=== PATIENT | male | born 1945 | race Caucasian/White ===

== ENCOUNTER → 2016-09-19 | Outpatient (CLI) | payer OTHER ==
--- NOTE | 2016-09-19 13:56 | DX ---
Chest, Two Views - September 19, 2016 at 1132 hours History: Exertional dyspnea. Comparison: November 2015 Findings: Cardiac silhouette is within normal range. Moderate degenerative disk disease in the thorac ic spine. Hyperinflation of the lungs and flattening of the hemidiaphragms. No pneumonia, congestive heart failure, pleural effusion, or pneumothorax. Impression: 1. COPD. 2. No definite pneumonia or pulmonary edema. 3. Consider low-dose screening CT chest.
== END ==
LOC: CIMAGING 11:25
PROVIDERS: ATTEND Internal Medicine
DX: J44.9 Chronic obstructive pulmonary disease, unspecified (principal)
CPT/HCPCS: 71020-PO

== ENCOUNTER 2017-08-22 10:45 | Emergency (ER) | payer OTHER ==
--- NOTE | 2017-08-22 13:10 | EDPHY ---
H & P Time Seen by Provider: 08/22/17 10:51 HPI/ROS: 72-year-old male had an upper and lower endoscopy this morning at [facility] with Dr. Braden, he had a few polyps removed and biopsies-nothing invasive per Dr Braden. After the procedure he felt well, though tired from a long night of preparation for the procedure. He went to have a meal after the procedure and noticed a tablespoon of blood with his bowel movement , as well as some small clots. He denies feeling light headed or dizzy, no chest pain, no shortness of breath and no palpitations. He is normally on pradaxa for his afib but it was stopped for the procedure and he has been on Lovenox, he is to restart his pradaxa on of this week. Review of systems As per HPI General no fever no chills no weakness HEENT no eye pain no eye discharge. No eye redness, no sore throat Respiratory no cough, no shortness of breath Cardiac no chest pain, no peripheral edema GI no abdominal pain, no diarrhea, no constipation, no nausea, no vomiting, positive rectal bleeding no flank pain, no hematuria, no dysuria Musculoskeletal no myalgias, no joint pain Heme no easy bruising, no easy bleeding Endo no polyuria, no polydipsia Skin no rashes, no pruritus Neuro no syncope, no dizziness, no headaches Psych is no suicidal ideation, no homicidal ideation Past Medical/Surgical History: copd obesity diabetes gout Social History: Denies alcohol or drug use. Smoking Status: Former smoker Physical Exam: 72-year-old male alert and oriented in nad, non toxic appearance, afebrile VSS at, nc eomi neck supple, no jvd lungs cta bilat heart rrr abd obese nabs soft ext trace edema, venous stasis changes bilaterally rectal no external evidence of blood, no clots on exam blood tinged mucous Constitutional: Initial Vital Signs Temperature (C) 36.4 C 08/22/17 11:01 Heart Rate 86 08/22/17 11:01 Respiratory Rate 20 08/22/17 11:01 Blood Pressure 159/76 H 08/22/17 11:01 O2 Sat (%) 89 L 08/22/17 11:01 O2 Delivery Mode Room Air Allergies/Adverse Reactions: ciprofloxacin [From Cipro] Allergy (Verified 08/22/17 10:56) ciprofloxacin HCl [From Cipro] Allergy (Verified 08/22/17 10:56) metronidazole [From Flagyl] Allergy (Verified 08/22/17 10:56) Home Medications: Medication Instructions Recorded ASPIRIN 08/22/17 Advair 250/50 (*) 08/22/17 Allopurinol 08/22/17 Benicar 08/22/17 Centrum Adults Tablet 08/22/17 Coenzyme Q10 08/22/17 Colchicine 08/22/17 FLUTICASONE PROPIONATE 08/22/17 Furosemide 08/22/17 Humalog 08/22/17 LYRICA 08/22/17 Lantus Solostar 08/22/17 Lipitor 08/22/17 Metoprolol Oral Susp (*) 08/22/17 ONDANSETRON HCL 08/22/17 Pantoprazole Sodium 08/22/17 Pradaxa 08/22/17 Soolantra 08/22/17 Spiriva Inhaler (RX) 08/22/17 amLODIPine BESYLATE 08/22/17 metFORMIN SR 08/22/17 traZODone 08/22/17 Medical Decision Making ED Course/Re-evaluation: Pt seen and evaluated for rectal bleeding after colonoscopy. No abdominal pain. Labs Hgb 13.6 INR wnl Pt with small amount of blood on exam. Discussed with Dr Braden, he stated it is normal to have some bleeding , it should slow down over the next two days. He felt the procedure would not lead to any significant bleeding, some polyp removal and biopsies. Imp Post colonoscopy rectal bleeding Pt without sympotms, no hypotension, no tachycardia and with stable hemoglobin Plan Home Return if bleeding continues or worsens. Patient given option 1) baseline labs and observation in ER for 1-2 more hours 2) baseline labs and admit for 23 hour observation 3) baseline labs and home, with strict precautions to return if worsening He was adamant about going home . Differential Diagnosis: Differential diagnosis considered but not limited to: Coagulopathy Rectal bleeding-status post colonoscopy with polyp removal, polyps site could be bleeding Biopsy site could be bleeding - Data Points Laboratory Results: Laboratory Results 08/22/17 13:10 08/22/17 13:10 08/22/17 08/22/17 08/22/17 13:10 13:10 13:10 WBC 9.04 10^3/uL 10^3/uL (3.80-9.50) RBC 4.36 10^6/uL L 10^6/uL (4.40-6.38) Hgb 13.6 g/dL L g/dL (13.7-17.5) Hct 39.2 % L % (40.0-51.0) MCV 89.9 fL fL (81.5-99.8) MCH 31.2 pg pg (27.9-34.1) MCHC 34.7 g/dL g/dL (32.4-36.7) RDW 16.5 % H % (11.5-15.2) Plt Count 186 10^3/uL 10^3/uL (150-400) MPV 10.5 fL fL (8.7-11.7) Neut % (Auto) 74.1 % % (39.3-74.2) Lymph % (Auto) 16.0 % % (15.0-45.0) [place] % (Auto) 7.7 % % (4.5-13.0) Eos % (Auto) 1.7 % % (0.6-7.6) Baso % (Auto) 0.3 % % (0.3-1.7) Nucleat RBC Rel Count 0.0 % % (0.0-0.2) Absolute Neuts (auto) 6.69 10^3/uL H 10^3/uL (1.70-6.50) Absolute Lymphs (auto) 1.45 10^3/uL 10^3/uL (1.00-3.00) Absolute Monos (auto) 0.70 10^3/uL 10^3/uL (0.30-0.80) Absolute Eos (auto) 0.15 10^3/uL 10^3/uL (0.03-0.40) Absolute Basos (auto) 0.03 10^3/uL 10^3/uL (0.02-0.10) Absolute Nucleated RBC 0.00 10^3/uL 10^3/uL (0-0.01) Immature Gran % 0.2 % % (0.0-1.1) Immature Gran # 0.02 10^3/uL 10^3/uL (0.00-0.10) PT 14.0 SEC SEC (12.0-15.0) INR 1.09 (0.83-1.16) APTT 43.4 SEC H SEC (23.0-38.0) Sodium 141 mEq/L mEq/L (134-144) Potassium 3.9 mEq/L mEq/L (3.5-5.2) Chloride 106 mEq/L mEq/L (97-110) Carbon Dioxide 20 mEq/l L mEq/l (22-31) Anion Gap 15 mEq/L mEq/L (8-16) BUN 15 mg/dL mg/dL (7-23) Creatinine 0.9 mg/dL mg/dL (0.7-1.3) Estimated GFR > 60 Glucose 174 mg/dL H mg/dL (70-100) Calcium 9.1 mg/dL mg/dL (8.5-10.4) Departure - Departure Disposition: Home, Routine, Self-Care Clinical Impression: Rectal bleeding Condition: Good Instructions: Rectal Bleeding (ED) Additional Instructions: If you feel you have heavy bleeding, dizziness, chest pain or shortness of breath, please go to your closest ED. Referrals: Ivan Wahl MD [Primary Care Provider] - As per Instructions
[2017-08-22 13:15] LABS: PLATELET COUNT 186 10^3/uL (150-400)
[2017-08-22 13:22] VITALS: BP 152/79; PULSE 81; RESP 19; TEMP 97.9; O2SAT 91
[2017-08-22 13:27] LABS: INR 1.09 (0.83-1.16)
== END 2017-08-22 13:22 | disposition home or self-care (01) ==
LOC: CED 10:45
DX: K62.5 Hemorrhage of anus and rectum (principal); J44.9 Chronic obstructive pulmonary disease, unspecified; E11.9 Type 2 diabetes mellitus without complications; Z79.4 Long term (current) use of insulin; Z79.82 Long term (current) use of aspirin; Z79.84 Long term (current) use of oral hypoglycemic drugs; Z87.891 Personal history of nicotine dependence
CPT/HCPCS: 80048-PO; 85025-PO; 85610-PO; 85730-PO

== ENCOUNTER → 2017-08-29 | Outpatient (CLI) | payer OTHER | LOC: CIMAGING 14:41 | PROVIDERS: ATTEND Internal Medicine | DX: J44.0 Chronic obstructive pulmonary disease with (acute) lower respiratory infection (principal); J40 Bronchitis, not specified as acute or chronic; M25.551 Pain in right hip; M47.897 Other spondylosis, lumbosacral region | CPT/HCPCS: 71046-PO; 73502-PO ==

== ENCOUNTER → 2017-12-06 | Outpatient (CLI) | payer OTHER | PROVIDERS: ATTEND Otolaryngology | DX: R13.10 Dysphagia, unspecified (principal); K44.9 Diaphragmatic hernia without obstruction or gangrene; K21.9 Gastro-esophageal reflux disease without esophagitis | CPT/HCPCS: 74220; 74230; 92611; G8996; G8997; G8998 ==

== ENCOUNTER → 2018-12-06 | Outpatient (CLI) | payer OTHER | LOC: CIMAGING 11:00 | PROVIDERS: ATTEND Internal Medicine | DX: J40 Bronchitis, not specified as acute or chronic (principal) | CPT/HCPCS: 71046-PO ==